=== PATIENT | female | born 1955 | race Caucasian/White ===

== ENCOUNTER 2017-12-10 22:39 | Emergency (ER) | payer MEDICAID, OTHER ==
--- NOTE | 2017-12-11 01:50 | ED ---
Lower Extremity - HPI Summary HPI Summary: Patient is a 61-year-old female who presents emergency department for a head and right foot injury after a mechanical fall that occurred this afternoon around 1400. Patient states her foot caught on something at her house and she slid into the door which caused her to trip and hit her left forehead on the door jam. She denies loss of consciousness. She is not anticoagulated. She denies chest pain, shortness of breath lightheadedness, dizziness, recent illness. Is unable to bear weight on to right foot. Symptoms are mild to moderate in severity. Walking makes symptoms worse. Rest makes symptoms better. - History of Current Complaint Chief Complaint: EDSoftTissueLowExtr Stated Complaint: FALL Time Seen by Provider: 12/10/17 23:15 Hx Obtained From: Patient Mechanism Of Injury: Fall From A Standing Position Onset of Pain: Immediate Onset/Duration: Hours Severity Initially: Moderate Severity Currently: Moderate Pain Intensity: 9 Timing: Constant Character Of Pain: Sharp, Aching Associated Signs And Symptoms: Positive: Swelling, Bruising Aggravating Factor(s): Standing, Ambulation Alleviating Factor(s): Rest Able to Bear Weight: No - Allergies/Home Medications Allergies/Adverse Reactions: Allergies Allergy/AdvReac Type Severity Reaction Status Date / Time MS Oxycodone [Oxycodone] Allergy NAUSEA, Verified 12/15/15 17:58 DIZZY ENVIRONMENT/SEASON Allergy Unknown Uncoded 12/15/15 17:58 Reaction Details PMH/Surg Hx/FS Hx/Imm Hx Previously Healthy: Yes Endocrine/Hematology History: Reports: Hx Thyroid Disease - HYPOTHYROIDISM Denies: Hx Anticoagulant Therapy, Hx Diabetes, Other Endocrine/Hematological Disorders Cardiovascular History: Reports: Hx Coronary Artery Disease - CHOLESTEROL CONTROL WITH MEDS, Other Cardiovascular Problems/Disorders - PHLEBITIS 20 YEARS AGO Denies: Hx Hypertension, Hx Pacemaker/ICD Respiratory History: Reports: Hx Sleep Apnea Denies: Hx Asthma, Other Respiratory Problems/Disorders GI History: Reports: Hx Gastroesophageal Reflux Disease - HX OF ACID REFLUX, NONE RECENTLY, Hx Ulcer - HX OF, NO PROBLEMS NOW, Other GI Disorders - LAPAROSCOPIC GASTRIC BAND History: Denies: Hx Renal Disease, Other Problems/Disorders Musculoskeletal History: Reports: Hx Arthritis - LEFT HAND, BACK, Hx Tendonitis - RIGHT FOOT TENDONITIS TIBIALIS SINCE 09/12, SURGERY WITH NO IMPROVEMENT, Other Musculoskeletal History - RIGHT ANKLE INJURY IN AUGUST Sensory History: Reports: Hx Contacts or Glasses - GLASSES Denies: Hx Hearing Aid, Other Sensory Impairments Opthamlomology History: Reports: Hx Contacts or Glasses - GLASSES Denies: Other Sensory Impairments Neurological History: Denies: Other Neuro Impairments/Disorders Psychiatric History: Denies: Hx Panic Disorder, Other Psychiatric Issues/Disorders - Surgical History Surgery Procedure, Year, and Place: 1970 APPENDECTOMY- [place]. 1982 - [facility]. 1993 REMOVAL OF LESIONS ON VOCAL CORD- [place]. 2000 LAP BAND - [place]. right foot knee bone fused into ankle February 2015. 2014 RIGHT FOOT SUBTALAR FUSION TIBIAL BONE GRAFT, FDL TRANSFER TO POSTERIOR TIBIAL TENDON, [facility] Hx Anesthesia Reactions: No - Immunization History Immunizations Up to Date: Yes Infectious Disease History: No Infectious Disease History: Denies: Hx Clostridium Difficile, Hx Hepatitis, Hx Human Immunodeficiency Virus (HIV), Hx of Known/Suspected MRSA, Hx Shingles, Hx Tuberculosis, Hx Known/ Suspected VRE, Hx Known/Suspected VRSA, History Other Infectious Disease, Traveled Outside the in Last 30 Days - Family History Known Family History: Positive: Hypertension, Diabetes - Social History Occupation: Unemployed Lives: With Family Alcohol Use: None Substance Use Type: Reports: None Smoking Status (MU): Former Smoker Type: Cigarettes Amount Used/How Often: 3 PPD FOR 20 YRS Length of Time of Smoking/Using Tobacco: 20 YEARS Have You Smoked in the Last Year: No Review of Systems Constitutional: Negative Positive: Fever Eyes: Negative ENT: Negative Cardiovascular: Negative Negative: Palpitations, Chest Pain Respiratory: Negative Negative: Shortness Of Breath, Cough Gastrointestinal: Negative Negative: Abdominal Pain, Vomiting, Diarrhea, Nausea Positive: Other - Pain, swelling and bruising to right foot. Positive: Bruising Positive: Headache All Other Systems Reviewed And Are Negative: Yes Physical Exam Triage Information Reviewed: Yes Vital Signs On Initial Exam: Initial Vitals BP 143/82 12/10/17 22:48 Vital Signs Reviewed: Yes Appearance: Positive: Well-Appearing - Patient sitting up in bed in no acute distress. Family present. Head/Face: Positive: Other - Large hematoma and ecchymosis noted above the left thigh. No laceration. Eyes: Positive: Normal, EOMI - Without pain or entrapment, MARCIAL Neck: Positive: Supple, Nontender Musculoskeletal: Positive: Other - Moderate pain, edema and ecchymosis noted to the distal right foot. No open wounds. Mild pain to medial and lateral malleolus. No proximal knee or hip pain. Leg is neurovascularly intact. Psychiatric: Positive: Normal Diagnostics - Vital Signs Vital Signs Temp Pulse Resp BP Pulse Ox 12/11/17 01:30 65 12 121/61 96 12/11/17 01:00 74 17 112/66 96 12/11/17 00:30 58 11 105/60 98 12/11/17 00:01 61 16 119/67 96 12/11/17 00:00 63 17 96 12/10/17 23:16 69 19 96 12/10/17 23:00 62 12 128/65 96 12/10/17 22:50 97.5 F 61 16 128/65 99 12/10/17 22:48 143/82 - Laboratory Lab Statement: Any lab studies that have been ordered have been reviewed, and results considered in the medical decision making process. Lower Extremity Course/Dx - Course Course Of Treatment: Patient presenting to the ER for a head and foot injury after a mechanical fall. X-rays and CT scan were obtained. 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 X-rays reviewed by myself and Dr. Morales and are negative for acute findings. Results were discussed with patient. She states she is unable to bear weight secondary to pain. Postop she was placed. Patient states she has a walker at home she can use. She was given information for orthopedics for follow-up for further evaluation. Advised to ice and elevate. Continue Tylenol or Motrin for pain as directed. Patient understands and agrees with plan. - Diagnoses Provider Diagnoses: Contusion of face, Head injury, Foot contusion Discharge - Sign-Out/Discharge Documenting (check all that apply): Discharge - Discharge Plan Condition: Good Disposition: HOME Patient Education Materials: Head Injury (ED), Foot Contusion (ED), Scalp Contusion in Adults (ED) Referrals: Nicholas Ramirez MD [Primary Care Provider] - Additional Instructions: Schedule a follow up appointment with Dr. Lambert Ice and elevate foot Tylenol for pain as directed Return to ER if symptoms change or worsen - Billing Disposition and Condition Condition: GOOD Disposition: HOME
[2017-12-11 01:52] VITALS: BP 144/77
--- NOTE | 2017-12-11 09:24 | RAD ---
INDICATION: Right foot and ankle pain after a fall COMPARISON: Right foot radiograph dated December 03, 2015 TECHNIQUE: 3 views of the right foot and 3 views of the right ankle were obtained. FINDINGS: Degenerative changes include enthesophyte formation at the origin of the plantar fascia on the calcaneal tubercle. There is mild sclerotic change of the articulating surfaces between the talus and navicular bone. The bones are otherwise adequately corticated and appropriately aligned. No acute fracture or dislocation is seen. IMPRESSION: DEGENERATIVE CHANGES OF THE RIGHT FOOT AND ANKLE WITHOUT RADIOGRAPHICALLY APPARENT FRACTURE OR DISLOCATION. If the patient's symptoms persist, follow-up imaging is recommended.
--- NOTE | 2017-12-11 09:53 | RAD ---
INDICATION: The patient struck the left side of the forehead after a fall COMPARISON: None. TECHNIQUE: Contiguous axial sections of the brain were obtained from the skull base to the vertex without contrast. FINDINGS: Overlying the left frontal bone there is hyperattenuating thickening of the subgaleal tissue measuring 8 mm in thickness. This extends inferiorly to the left periorbital area. The ventricles, cisterns and sulci are within normal limits. The pacheco-white matter differentiation is adequately maintained and there is no sulcal effacement. No significant focal abnormality or mass effect is present. There is no evidence for intracranial hemorrhage. No significant focal osseous abnormality is present. The visualized portion of the paranasal sinuses appear clear. There is trace dependent effusion at the left mastoid air cells. IMPRESSION: 1. CT findings are consistent with traumatic subgaleal hematoma overlying the left frontal bone and periorbital area without definite underlying calvarial fracture or acute intracranial hemorrhage. 2. There is trace mastoid air cell effusion on the left which raises concern for an occult injury of the temporal bone in this clinical setting. Particularly if the patient's symptoms do not improve as would be expected for a superficial injury, further imaging is advised.
== END 2017-12-11 01:50 | disposition home or self-care (01) ==
LOC: ED 22:39
DX: S00.83XA Contusion of other part of head, initial encounter (principal); S90.31XA Contusion of right foot, initial encounter; S09.90XA Unspecified injury of head, initial encounter; W18.09XA Striking against other object with subsequent fall, initial encounter; Y93.9 Activity, unspecified; Y92.009 Unspecified place in unspecified non-institutional (private) residence as the place of occurrence of the external cause; E03.9 Hypothyroidism, unspecified; I25.10 Atherosclerotic heart disease of native coronary artery without angina pectoris; E78.5 Hyperlipidemia, unspecified; G47.30 Sleep apnea, unspecified; Z88.5 Allergy status to narcotic agent; Z87.891 Personal history of nicotine dependence
CPT/HCPCS: 70450; 99283

== ENCOUNTER 2018-03-04 20:38 | Emergency (ER) | payer OTHER ==
[2018-03-04 23:16] VITALS: BP 154/98
--- NOTE | 2018-03-04 23:16 | ED ---
Suad Bennett Elizabeth, scribed for Vida Cordova MD on 03/04/18 at 2125 . Psychiatric Complaint - HPI Summary HPI Summary: This patient is a 62 year old F was brought to [facility] by police after threatening to hurt herself after fighting with her daughter. The patient reports that her daughter was upset after the patient said she was moving out, leading a verbal fight during which the patient said she would take a bunch of pills. The patients daughter then called the police. The patient reports that she does not want to kill herself and that she wants to go home. The patient rates the pain 0/10 in severity. Symptoms aggravated by recent stress. Symptoms alleviated by nothing. - History Of Current Complaint Chief Complaint: EDMentalHealth Time Seen by Provider: 03/04/18 21:06 Hx Obtained From: Patient Onset/Duration: Sudden Onset, Lasting Minutes, Still Present Severity Initially: Mild Severity Currently: Mild Character: Angry Aggravating Factor(s): Recent Stress Alleviating Factor(s): Nothing Has Suicidal: Denies: Thoughts - Allergies/Home Medications Allergies/Adverse Reactions: Allergies Allergy/AdvReac Type Severity Reaction Status Date / Time oxycodone Allergy Dizziness Verified 03/04/18 20:45 ENVIRONMENT/SEASON Allergy Unknown Uncoded 12/15/15 17:58 Reaction Details PMH/Surg Hx/FS Hx/Imm Hx Endocrine/Hematology History: Reports: Hx Thyroid Disease - HYPOTHYROIDISM Denies: Hx Anticoagulant Therapy, Hx Diabetes, Other Endocrine/Hematological Disorders Cardiovascular History: Reports: Hx Coronary Artery Disease - CHOLESTEROL CONTROL WITH MEDS, Other Cardiovascular Problems/Disorders - PHLEBITIS 20 YEARS AGO Denies: Hx Hypertension, Hx Pacemaker/ICD Respiratory History: Reports: Hx Sleep Apnea Denies: Hx Asthma, Other Respiratory Problems/Disorders GI History: Reports: Hx Gastroesophageal Reflux Disease - HX OF ACID REFLUX, NONE RECENTLY, Hx Ulcer - HX OF, NO PROBLEMS NOW, Other GI Disorders - LAPAROSCOPIC GASTRIC BAND History: Denies: Hx Renal Disease, Other Problems/Disorders Musculoskeletal History: Reports: Hx Arthritis - LEFT HAND, BACK, Hx Tendonitis - RIGHT FOOT TENDONITIS TIBIALIS SINCE 09/12, SURGERY WITH NO IMPROVEMENT, Other Musculoskeletal History - RIGHT ANKLE INJURY IN AUGUST Sensory History: Reports: Hx Contacts or Glasses - GLASSES Denies: Hx Hearing Aid, Other Sensory Impairments Opthamlomology History: Reports: Hx Contacts or Glasses - GLASSES Denies: Other Sensory Impairments Neurological History: Denies: Other Neuro Impairments/Disorders Psychiatric History: Denies: Hx Panic Disorder, Other Psychiatric Issues/Disorders - Surgical History Surgery Procedure, Year, and Place: 1969 APPENDECTOMY- [place]. 1982 - [facility]. 1993 REMOVAL OF LESIONS ON VOCAL CORD- [place]. 2000 LAP BAND - [place]. right foot knee bone fused into ankle February 2015. 2014 RIGHT FOOT SUBTALAR FUSION TIBIAL BONE GRAFT, FDL TRANSFER TO POSTERIOR TIBIAL TENDON, [facility] Hx Anesthesia Reactions: No Infectious Disease History: No Infectious Disease History: Denies: Hx Clostridium Difficile, Hx Hepatitis, Hx Human Immunodeficiency Virus (HIV), Hx of Known/Suspected MRSA, Hx Shingles, Hx Tuberculosis, Hx Known/ Suspected VRE, Hx Known/Suspected VRSA, History Other Infectious Disease, Traveled Outside the in Last 30 Days - Family History Known Family History: Positive: Hypertension, Diabetes - Social History Alcohol Use: None Substance Use Type: Reports: None Smoking Status (MU): Former Smoker Type: Cigarettes Amount Used/How Often: 3 PPD FOR 20 YRS Length of Time of Smoking/Using Tobacco: 20 YEARS Have You Smoked in the Last Year: No Review of Systems Negative: Fever Negative: Epistaxis Negative: Chest Pain Negative: Cough Negative: Vomiting All Other Systems Reviewed And Are Negative: Yes Physical Exam - Summary Physical Exam Summary: VITAL SIGNS: Reviewed. GENERAL: Patient is a well-developed and nourished FEMALE who is lying comfortable in the stretcher. Patient is not in any acute respiratory distress. HEAD AND FACE: No signs of trauma. No ecchymosis, hematomas or skull depressions. No sinus tenderness. EYES: PERRLA, EOMI x 2, No injected conjunctiva, no nystagmus. EARS: Hearing grossly intact. Ear canals and tympanic membranes are within normal limits. MOUTH: Oropharynx within normal limits. NECK: Supple, trachea is midline, no adenopathy, no JVD, no carotid bruit, no c- spine tenderness, neck with full ROM. CHEST: Symmetric, no tenderness at palpation LUNGS: Clear to auscultation bilaterally. No wheezing or crackles. CVS: Regular rate and rhythm, S1 and S2 present, no murmurs or gallops appreciated. ABDOMEN: Soft, non-tender. No signs of distention. No rebound no guarding, and no masses palpated. Bowel sounds are normal. EXTREMITIES: FROM in all major joints, no edema, no cyanosis or clubbing. NEURO: Alert and oriented x 3. No acute neurological deficits. Speech is normal and follows commands. SKIN: Dry and warm Triage Information Reviewed: Yes Vital Signs On Initial Exam: Initial Vitals Temp Pulse Resp BP Pulse Ox 97.8 F 78 20 146/110 99 03/04/18 20:39 03/04/18 20:39 03/04/18 20:39 03/04/18 20:39 03/04/18 20:39 Vital Signs Reviewed: Yes Diagnostics - Vital Signs Vital Signs Temp Pulse Resp BP Pulse Ox 03/04/18 20:39 97.8 F 78 20 146/110 99 - Laboratory Lab Statement: Any lab studies that have been ordered have been reviewed, and results considered in the medical decision making process. Course/Dx - Course Course Of Treatment: This patient is a 62 year old F was brought to [facility] by police after threatening to hurt herself after fighting with her daughter. The patient reports that she does not want to kill herself and that she wants to go home. Test results with no significant abnormalities. After [facility], we discussed patient care with Dr. Medina and they recommended the patient be discharged home with dx of adjustment disorder. Patient will be discharged home. The patient is agreeable with this plan. - Differential Dx/Clinical Impression Provider Diagnosis: Adjustment disorder - Physician Notifications Discussed Care Of Patient With: Hima Medina Time Discussed With Above Provider: 22:40 Instructed by Provider To: Other - After [facility], Dr. Medina recommends that the patient be discharged home. Discharge - Sign-Out/Discharge Documenting (check all that apply): Discharge/Admit/Transfer - Discharge Plan Condition: Stable Disposition: HOME Discharge Disposition Comment: discharge home Patient Education Materials: Stress (ED) Referrals: Nicholas Ramirez MD [Primary Care Provider] - 2 Days Additional Instructions: Follow up with primary care physician in 1-2 days. Return to the emergency department with any new or worsening symptoms. The documentation as recorded by the Suad dela cruz Elizabeth accurately reflects the service I personally performed and the decisions made by , Vdia Cordova MD.
== END 2018-03-04 23:00 | disposition home or self-care (01) ==
LOC: ED 20:38
DX: F43.20 Adjustment disorder, unspecified (principal); Z86.72 Personal history of thrombophlebitis; Z87.891 Personal history of nicotine dependence; Z88.5 Allergy status to narcotic agent
CPT/HCPCS: 99284

== ENCOUNTER → 2018-06-18 20:48 | Emergency (ER) | payer OTHER ==
[~2018-06-18 20:48] MED LIST: Ketorolac INJ* 30 MG/ML 1 ML VIAL IV PUSH ONE; Lidocaine PATCH 5%* 1 PATCH TRANSDERM ONE; Morphine INJ* 4 MG/ML 1 ML SYRINGE (NEW SYRINGE VERSION) IV ONE
--- NOTE | 2018-06-18 22:14 | RAD ---
EXAM: CT Lumbar Spine Without Intravenous Contrast EXAM DATE/TIME: 06/18/2018 9:48 PM CLINICAL HISTORY: 62 years old, female; Signs and symptoms; Other: Right side back pain after lifting laundry. TECHNIQUE: Axial computed tomography images of the lumbar spine without intravenous contrast. All CT scans at this facility use at least one of these dose optimization techniques: automated exposure control; mA and/or kV adjustment per patient size (includes targeted exams where dose is matched to clinical indication); or iterative reconstruction. Coronal and sagittal reformatted images were created and reviewed. COMPARISON: No relevant prior studies available. FINDINGS: Vertebrae: No acute fracture. Normal alignment. Soft tissues: Unremarkable. Gallbladder and bile ducts: Status post cholecystectomy. Stomach and bowel: There is a lap band in position on the stomach. DISCS/SPINAL CANAL/NEURAL FORAMINA: L1-L2: Interspace narrowing slight retrolisthesis and early degenerative changes of the facets with no spinal or foraminal stenosis. L2-L3: Slight interspace narrowing with no significant facet arthropathy in no spinal or foraminal stenosis. L3-L4: Mild interspace narrowing with loss posterior concavity consistent with minimal posterior protrusion. There is minimal facet arthropathy in no spinal or foraminal stenosis. L4-L5: Mild interspace narrowing with minimal broad-based posterior protrusion of the disc and mild left and minimal right facet arthropathy. There is no spinal or foraminal stenosis. L5-S1: Prominent interspace narrowing with posterior osteophytes and right lateral recess and mild facet arthropathy. There is slight narrowing of the right lateral recess with no spinal stenosis and no significant neural foraminal stenosis. IMPRESSION: 1. Status post cholecystectomy and lap band in position on the stomach. 2. Early multilevel degenerative changes with no significant spinal or foraminal stenosis. There is slight narrowing of the right lateral recess L5-S1. To contact [facility] with a general question: [facility] - [phone] For direct physician to physician contact: Physician Hotline - [phone] [facility] ([facility] Facility ID #[id number])
--- NOTE | 2018-06-18 22:41 | ED ---
Back Pain - HPI Summary HPI Summary: 62-year-old female presents with back pain today. States that she was taking laundry out of the dryer and felt a pop in her back. She has chronic back pain. She's had this pain in the same location as normal but the pain is just more intense. She had her normal pain medication and muscle relaxer and it has not helped. She states that it radiates a little bit down the right leg. No numbness or tingling. No loss of bowel or bladder saddle anesthesia. No fevers. No weakness. able to ambulate very slowly. No urinary symptoms. no fevers. - History of Current Complaint Chief Complaint: EDBackInjuryPain Stated Complaint: BACK PAIN/INJURY HEARD A POP Time Seen by Provider: 06/18/18 21:19 Pain Intensity: 10 - Allergies/Home Medications Allergies/Adverse Reactions: Allergies Allergy/AdvReac Type Severity Reaction Status Date / Time oxycodone Allergy Dizziness Verified 06/18/18 20:54 ENVIRONMENT/SEASON Allergy Unknown Uncoded 06/18/18 20:54 Reaction Details Home Medications: Home Medications Cyclobenzaprine TAB* [Flexeril 10 MG TAB*] 5 mg PO DAILY 06/18/18 [History Confirmed 06/18/18] Sertraline* [Zoloft*] 50 mg PO DAILY 06/18/18 [History Confirmed 06/18/18] PMH/Surg Hx/FS Hx/Imm Hx Endocrine/Hematology History: Reports: Hx Thyroid Disease - HYPOTHYROIDISM Denies: Hx Anticoagulant Therapy, Hx Diabetes, Other Endocrine/Hematological Disorders Cardiovascular History: Reports: Hx Coronary Artery Disease - CHOLESTEROL CONTROL WITH MEDS, Other Cardiovascular Problems/Disorders - PHLEBITIS 20 YEARS AGO Denies: Hx Hypertension, Hx Pacemaker/ICD Respiratory History: Reports: Hx Sleep Apnea Denies: Hx Asthma, Other Respiratory Problems/Disorders GI History: Reports: Hx Gastroesophageal Reflux Disease - HX OF ACID REFLUX, NONE RECENTLY, Hx Ulcer - HX OF, NO PROBLEMS NOW, Other GI Disorders - LAPAROSCOPIC GASTRIC BAND History: Denies: Hx Renal Disease, Other Problems/Disorders Musculoskeletal History: Reports: Hx Arthritis - LEFT HAND, BACK, Hx Tendonitis - RIGHT FOOT TENDONITIS TIBIALIS SINCE 09/12, SURGERY WITH NO IMPROVEMENT, Other Musculoskeletal History - RIGHT ANKLE INJURY IN AUGUST Sensory History: Reports: Hx Contacts or Glasses - GLASSES Denies: Hx Hearing Aid, Other Sensory Impairments Opthamlomology History: Reports: Hx Contacts or Glasses - GLASSES Denies: Other Sensory Impairments Neurological History: Denies: Other Neuro Impairments/Disorders Psychiatric History: Denies: Hx Eating Disorder, Hx Panic Disorder, Other Psychiatric Issues/ Disorders - Surgical History Surgery Procedure, Year, and Place: 1970 APPENDECTOMY- [place]. 1982 - [facility] [place]. 1993 REMOVAL OF LESIONS ON VOCAL CORD- [place]. 2000 LAP BAND - [place]. right foot knee bone fused into ankle February 2015. 2014 RIGHT FOOT SUBTALAR FUSION TIBIAL BONE GRAFT, [facility] TRANSFER TO POSTERIOR TIBIAL TENDON, [facility] Hx Anesthesia Reactions: No Infectious Disease History: No Infectious Disease History: Denies: Hx Clostridium Difficile, Hx Hepatitis, Hx Human Immunodeficiency Virus (HIV), Hx of Known/Suspected MRSA, Hx Shingles, Hx Tuberculosis, Hx Known/ Suspected VRE, Hx Known/Suspected VRSA, History Other Infectious Disease, Traveled Outside the in Last 30 Days - Family History Known Family History: Positive: Hypertension, Diabetes - Social History Alcohol Use: None Substance Use Type: Reports: None Smoking Status (MU): Former Smoker Type: Cigarettes Amount Used/How Often: 3 PPD FOR 20 YRS Length of Time of Smoking/Using Tobacco: 20 YEARS Have You Smoked in the Last Year: No Review of Systems Negative: Fever Negative: Chest Pain Negative: Shortness Of Breath Positive: Myalgia - back pain All Other Systems Reviewed And Are Negative: Yes Physical Exam Triage Information Reviewed: Yes Vital Signs On Initial Exam: Initial Vitals Temp Pulse Resp BP Pulse Ox 98.6 F 63 16 127/81 94 06/18/18 20:51 06/18/18 20:51 06/18/18 20:51 06/18/18 20:51 06/18/18 20:51 Vital Signs Reviewed: Yes Appearance: Positive: Well-Appearing Skin: Positive: Warm, Dry Head/Face: Positive: Normal Head/Face Inspection Eyes: Positive: Normal, Conjunctiva Clear ENT: Positive: Pharynx normal Respiratory/Lung Sounds: Positive: Clear to Auscultation, Breath Sounds Present Cardiovascular: Positive: Normal, RRR Abdomen Description: Positive: Nontender, Soft Bowel Sounds: Positive: Present Musculoskeletal: Positive: Limited @ - back pain, Other - tenderness right side of back, neg SLR, good pulses, sensation grossly intact Neurological: Positive: Normal Psychiatric: Positive: Normal Diagnostics - Vital Signs Vital Signs Temp Pulse Resp BP Pulse Ox 06/18/18 22:17 16 06/18/18 20:51 98.6 F 63 16 127/81 94 - Laboratory Lab Statement: Any lab studies that have been ordered have been reviewed, and results considered in the medical decision making process. - CT back CT Interpretation: No Acute Changes - IMPRESSION: 1. Status post cholecystectomy and lap band in position on the stomach. 2. Early multilevel degenerative changes with no significant spinal or foraminal stenosis. There is slight narrowing of the right lateral recess L5-S1. CT Interpretation Completed By: Radiologist Back Pain Course/Dx - Course Course Of Treatment: 62-year-old female presents with back pain today. States that she was taking laundry out of the dryer and felt a pop in her back. She has chronic back pain. She's had this pain in the same location as normal but the pain is just more intense. She had her normal pain medication and muscle relaxer and it has not helped. She states that it radiates a little bit down the right leg. No numbness or tingling. No loss of bowel or bladder saddle anesthesia. No fevers. No weakness. able to ambulate very slowly. No urinary symptoms. On exam tenderness on the right side of lower back. Neurovascular intact. CT shows no acute findings. discussed will add on lidocaine patch and medrol for pain. patient understand and agrees with plan. - Diagnoses Differential Diagnosis/HQI/PQRI: Positive: Herniated Disc, Strain, Sprain Provider Diagnoses: Back pain Discharge - Sign-Out/Discharge Documenting (check all that apply): Patient Departure - Discharge Plan Condition: Good Disposition: HOME Prescriptions: Lidocaine PATCH 5%* [Lidoderm 5% Patch*] 1 patch TRANSDERM DAILY #7 patch methylPREDNISolone [Medrol Dosepak 4 MG*] 4 mg PO .SEE SELENE INSTRUCTION #1 packet Patient Education Materials: Back Pain (ED) Referrals: Nicholas Ramirez MD [Primary Care Provider] - Additional Instructions: Follow directions on package for Medrol pack Apply lidocaine patches to area for up to 12 hours in one 24 hour period Use Tylenol for pain every 6 hours ice/heat area, move as much as possible Follow up with primary within 5 days Return to ED if develop any new or worsening symptoms - Billing Disposition and Condition Condition: GOOD Disposition: Home
[2018-06-19 00:50] VITALS: BP 127/76
== END | disposition home or self-care (01) ==
LOC: ED 20:48
DX: M54.9 Dorsalgia, unspecified (principal); I25.10 Atherosclerotic heart disease of native coronary artery without angina pectoris; Z87.891 Personal history of nicotine dependence
CPT/HCPCS: 72131; 96374; 96375; 99283; A9270-GY; J1885; J2270